=== PATIENT | female | born 1995 | race Caucasian/White ===

== ENCOUNTER 2017-10-08 10:57 | Emergency (ER) | payer OTHER, SELFPAY ==
[2017-10-08 11:11] VITALS: BP 115/72; PULSE 73; RESP 16; TEMP 36.4; O2SAT 100
--- NOTE | 2017-10-08 11:19 | ED.URI ---
HPI - URI/Sore Throat General Chief Complaint: Upper Respiratory Symptoms Stated Complaint: severe sinus pressure Time Seen by Provider: 10/08/17 11:18 Source: patient and family Mode of arrival: ambulatory Limitations: no limitations History of Present Illness HPI Narrative: 22-year-old female with history of sinus problems presents to the emergency department with increasing sinus pressure and drainage as well as fatigue for the past few days. 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 She denies any fever or chills. She denies localization of pain to 1 sinus or drainage of purulent material. She had been seen at the medical tent at the festival and was encouraged to try antihistamines, she took 1 Saadia GILBERT Complaint: nasal congestion and sinus pain Onset (ago): hour(s) Duration: constant Severity: mild Relieving factors: nothing Exacerbating factors: nothing Description of mucous: clear Able to tolerate fluids by mouth: Yes Associated symptoms: rhinorrhea and nasal congestion Treatments prior to arrival: other Review of Systems Review of Systems All systems reviewed & are unremarkable except as noted in HPI and below Constitutional Denies chills, Denies fever(s), Denies lethargy and Denies weakness Eyes Denies change in vision, Denies eye discharge, Denies irritation and Denies loss of vision ENT Ears, Nose, Mouth, and Throat: Denies change in voice, Reports nasal congestion, Reports nasal discharge, Denies neck pain, Reports sinus pain, Reports sinus pressure and Denies sore throat Cardiovascular Denies chest pain, Denies irregular heart rhythm, Denies lightheadedness, Denies palpitations, Denies dyspnea, Denies dyspnea on exertion and Denies orthopnea Respiratory Denies cough, Denies dyspnea, Denies dyspnea on exertion and Denies wheezing Gastrointestinal Gastrointestinal: Denies abdominal pain, Denies change in bowel habits, Denies diarrhea, Denies nausea and Denies vomiting Genitourinary Denies hematuria, Denies flank pain, Denies urinary incontinence and Denies urinary urgency Musculoskeletal Denies neck pain Integumentary/Breasts Denies pruritus, Denies erythema, Denies rash and Denies wounds Neurologic Denies confusion, Denies loss of vision and Denies weakness Psychiatric Denies anxiety, Denies confusion, Denies depression, Denies homicidal ideation and Denies suicidal ideation Endocrine Denies palpitations Hematologic/Lymphatic Denies easy bruising Allergic/Immunologic Denies wheezing PFSH Social History Smoking Status: Never smoker Exam Narrative Exam Narrative: GEN: AOx3 and in mild distress HEAD: All sinuses are tender to palpation. No abnormalities with transillumination EYES: Pupils are equal, round, and reactive to light and accommodation. Extraoccular muscles are intact bilaterally. There is no subconjunctival hemorrhage or exudate. NOSE: clear nasal drainage THROAT: clear post nasal drip, pharynx normal in appearance otherwise CHEST: Lungs are clear to auscultation bilaterally and free of wheezes, rales, or rhonchi. Heart rate is regular rhythm, there are no murmurs, clicks, rubs, or gallops. There is no chest wall tenderness. ABD: Abdomen is soft and nontender. There is no guarding or rebound. Bowel sounds are normal in all 4 quadrants. There is no mass or organomegaly. EXT: Full painless ROM of all extremities with no loss of sensation or strength. SKIN: Warm, pink, and dry. No erythema or rash Initial Vital Signs Initial Vital Signs: Vital Signs Temperature 97.6 F 10/08/17 11:11 Pulse Rate 73 10/08/17 11:11 Respiratory Rate 16 10/08/17 11:11 Blood Pressure 115/72 10/08/17 11:11 Pulse Oximetry 100 10/08/17 11:11 Course Vital Signs - 8 hr 10/08/17 11:11 Temperature 97.6 F Pulse Rate 73 Respiratory Rate 16 Blood Pressure 115/72 Pulse Oximetry 100 Discharge Plan Departure Patient Disposition: Home Clinical Impression: Allergic rhinitis, Sinusitis, acute Discharge Date/Time: 10/08/17 11:55 Interventions: ED Discharge Assessment Last Done: 10/08/17 11:55 Instructions: DI for Sinusitis Activity Restrictions/Additional Instructions: *You have been diagnosed with [ acute (non bacterial) sinusitis with allergic rhinitis ] *What to do: *Take medications as directed: A combination of antihistamine (Zyrtec, Claritin, Trudy, etc) and decongestant (Sudafed) along with pain med such as Tylenol or Motrin *Follow up with your primary care provider in 2-3 days, call for an appointment. Let them know you were seen in the Emergency Department and that we ask that you be seen in follow up *Return to ER if you should have any new, worsening or concerning symptoms
== END 2017-10-08 11:55 | disposition home or self-care (01) ==
PROVIDERS: Emergency Provider Emergency Medicine
DX: H10.10 Acute atopic conjunctivitis, unspecified eye (principal); J01.90 Acute sinusitis, unspecified
CPT/HCPCS: 99282